=== PATIENT | male | born 1945 ===

== ENCOUNTER 2017-11-02 13:03 | Outpatient (CLI) | payer OTHER ==
[~2017-11-02] VITALS: Ht 162.6 cm; Wt 79.4 kg
== END 2017-11-02 13:15 | disposition home or self-care (01) ==
LOC: OFIC 805 13:03
DX: J33.8 Other polyp of sinus (principal); J32.8 Other chronic sinusitis

== ENCOUNTER 2018-01-28 14:31 | Outpatient (CLI) | payer OTHER ==
[~2018-01-28] VITALS: Ht 152.4 cm; Wt 79.4 kg
== END 2018-01-28 14:45 | disposition home or self-care (01) ==
LOC: OFIC 805 14:31
DX: J32.8 Other chronic sinusitis (principal); R09.81 Nasal congestion; J33.8 Other polyp of sinus

== ENCOUNTER 2020-04-16 11:38 | Outpatient (CLI) | payer OTHER | END 2020-04-16 12:20 | disposition home or self-care (01) | LOC: OFIC 805 11:38 | PROVIDERS: ATTEND Otolaryngology Otology & Neurotology | DX: J33.8 Other polyp of sinus (principal); J32.8 Other chronic sinusitis; R09.81 Nasal congestion; H90.11 Conductive hearing loss, unilateral, right ear, with unrestricted hearing on the contralateral side ==

== ENCOUNTER 2020-05-05 14:08 | Outpatient (CLI) | payer OTHER | END 2020-05-05 14:31 | disposition home or self-care (01) | LOC: TOM 14:08 | PROVIDERS: ATTEND Otolaryngology Otology & Neurotology | DX: J32.4 Chronic pansinusitis (principal) ==

== ENCOUNTER → 2020-11-19 | Outpatient (CLI) | payer OTHER | END | disposition home or self-care (01) | LOC: OFIC 805 09:21 | PROVIDERS: ATTEND Otolaryngology Otology & Neurotology | DX: J33.8 Other polyp of sinus (principal); J32.8 Other chronic sinusitis; R09.81 Nasal congestion; H90.11 Conductive hearing loss, unilateral, right ear, with unrestricted hearing on the contralateral side ==